=== PATIENT | female | born 1995 | race Caucasian/White ===

== ENCOUNTER 2017-11-05 00:34 | Inpatient (IN) | payer BC ==
[2017-11-05] MEDS: ACETAMINOPHEN 325 MG TAB PO ×3 (02:04→20:31)
[2017-11-05] MEDS: LACTATED RINGER'S 1,000 ML IV ×4 (02:31→21:54)
[2017-11-05 02:53] LABS: ADD MAN DIFF? NO
[2017-11-05 02:56] LABS: WHITE BLOOD COUNT 10.9 10^3/ul (4.8-10.8)
[2017-11-05 02:56] LABS: BASOPHILS % 0.3 % (0.0-2.0); EOSINOPHILS # 0.1 10^3/ul (0.0-0.5); HEMATOCRIT 32.2 % (37.0-47.0); HEMOGLOBIN 10.6 g/dl (12.0-16.0); LYMPHOCYTES # 2.3 10^3/ul (0.8-2.9); LYMPHOCYTES % 20.8 % (15.0-51.0); MEAN CORPUSCULAR HEMOGLOBIN 26.8 pg (29.0-33.0); MEAN CORPUSCULAR HGB CONC 32.9 g/dl (32.0-37.0); MEAN CORPUSCULAR VOLUME 81.3 fl (82.0-101.0); MEAN PLATELET VOLUME 9.3 fl (7.4-10.4); MONOCYTE # 0.9 10^3/ul (0.3-0.9); MONOCYTES % 8.1 % (0.0-11.0); NEUTROPHIL # 7.5 10^3/ul (1.6-7.5); NEUTROPHILS % 69.2 % (39.0-77.0); PLATELET COUNT 429 10^3/UL (140-415); RED BLOOD COUNT 3.96 10^6/ul (4.20-5.40); RED CELL DISTRIBUTION WIDTH 13.9 % (11.5-14.5)
[2017-11-05 03:07] LABS: ADD UMIC YES; UR ASCORBIC ACID 20 mg/dL (NEGATIVE); UR BACTERIA FEW /HPF (NONE SEEN); UR BILIRUBIN (Dip) NEGATIVE (NEGATIVE); UR BLOOD (Dip) NEGATIVE (NEGATIVE); UR BUDDING YEAST FEW /HPF (NONE SEEN); UR CLARITY CLOUDY (CLEAR); UR COLOR YELLOW (YELLOW); UR GLUCOSE (Dip) NEGATIVE (NEGATIVE); UR KETONES (Dip) NEGATIVE (NEGATIVE); UR LEUKOCYTE ESTERASE (Dip) 3+ Leu/ul (NEGATIVE); UR MUCUS FEW /HPF (NONE SEEN); UR NITRITE (Dip) NEGATIVE (NEGATIVE); UR RBC 3 /HPF (0-5); UR SPECIFIC GRAVITY (Dip) 1.017 (1.003-1.030); UR SQUAMOUS EPITHELIAL CELL FEW /HPF (FEW); UR TOTAL PROTEIN (Dip) NEGATIVE (NEGATIVE); UR UROBILINOGEN (Dip) NEGATIVE (NEGATIVE); UR WBC 14 /HPF (0-5)
[2017-11-05 03:17] LABS: ALANINE AMINOTRANSFERASE 84 IU/L (13-69); ALBUMIN 3.5 g/dl (3.3-4.9); ALKALINE PHOSPHATASE 128 IU/L (42-121); ANION GAP 18 (8-16); ASPARTATE AMINO TRANSFERASE 35 IU/L (15-46); BLOOD UREA NITROGEN 7 mg/dl (7-20); CARBON DIOXIDE 21 mmol/L (21-31); CHLORIDE 105 mmol/L (97-110); CREATININE 0.54 mg/dl (0.44-1.00); GLUCOSE 107 mg/dl (70-220); POTASSIUM 3.8 mmol/L (3.5-5.1); SODIUM 140 mmol/L (135-144)
[2017-11-05 03:48] LABS: AMPHETAMINE/METHAMPHETAMINE Negative (NEGATIVE); BARBITURATES Negative (NEGATIVE); BENZODIAZEPINES Negative (NEGATIVE); CANNABINOIDS Negative (NEGATIVE); COCAINE Negative (NEGATIVE); OPIATES Negative (NEGATIVE)
[2017-11-05] MEDS: BETAMET NA PHOS/AC(6 MG/ML) 5ML INJ IM (05:21)
[2017-11-05] MEDS: PRENATAL VITAMIN PO (09:04)
[2017-11-05] MEDS ORDERED: SENNA/DOCUSATE NA (8.6MG/50MG) TAB PO (15:00)
[2017-11-05] MEDS: MAGNESIUM SULFATE 4 GM/100 ML 100 ML IV (15:14)
[2017-11-05] MEDS: MAGNESIUM SULFATE 20 GM/500 ML 500 ML IV (15:48)
[2017-11-05 15:54] LABS: ADD MAN DIFF? NO
[2017-11-05 15:57] LABS: BASOPHILS % 0.2 % (0.0-2.0); HEMATOCRIT 32.7 % (37.0-47.0); HEMOGLOBIN 10.6 g/dl (12.0-16.0); LYMPHOCYTES # 1.3 10^3/ul (0.8-2.9); LYMPHOCYTES % 10.6 % (15.0-51.0); MEAN CORPUSCULAR HEMOGLOBIN 26.7 pg (29.0-33.0); MEAN CORPUSCULAR HGB CONC 32.4 g/dl (32.0-37.0); MEAN CORPUSCULAR VOLUME 82.4 fl (82.0-101.0); MEAN PLATELET VOLUME 9.3 fl (7.4-10.4); MONOCYTE # 0.3 10^3/ul (0.3-0.9); MONOCYTES % 2.2 % (0.0-11.0); NEUTROPHIL # 10.4 10^3/ul (1.6-7.5); NEUTROPHILS % 86.1 % (39.0-77.0); PLATELET COUNT 437 10^3/UL (140-415); RED BLOOD COUNT 3.97 10^6/ul (4.20-5.40); RED CELL DISTRIBUTION WIDTH 14.1 % (11.5-14.5)
[2017-11-05 16:13] LABS: INR 0.95; PROTIME 12.8 Sec (11.9-14.9)
[2017-11-05 16:14] LABS: PARTIAL THROMBOPLASTIN TIME 27.4 Sec (25.0-35.0)
[2017-11-05 16:45] LABS: HEPATITIS B SURFACE ANTIGEN NEGATIVE (NEGATIVE)
[2017-11-05 21:34] LABS: RAPID PLASMA REAGIN NONREACTIVE (NR)
[2017-11-06] MEDS: MAGNESIUM SULFATE 20 GM/500 ML 500 ML IV ×2 (00:59→10:53)
[2017-11-06 01:15] LABS: MAGNESIUM 4.3 mg/dl (1.7-2.5)
[2017-11-06] MEDS: ACETAMINOPHEN 325 MG TAB PO ×2 (04:59→10:51)
[2017-11-06] MEDS: BETAMET NA PHOS/AC(6 MG/ML) 5ML INJ IM (05:11)
[2017-11-06 07:21] LABS: MAGNESIUM 4.4 mg/dl (1.7-2.5)
[2017-11-06] MEDS: PRENATAL VITAMIN PO (10:17)
[2017-11-06] MEDS: LACTATED RINGER'S 1,000 ML IV ×2 (10:18→21:15)
[2017-11-06 12:28] LABS: MAGNESIUM 4.3 mg/dl (1.7-2.5)
[2017-11-06 19:26] LABS: MAGNESIUM 3.6 mg/dl (1.7-2.5)
[2017-11-06] MEDS: FERROUS GLUCONATE (EC) 325 MG TAB PO (21:04)
[2017-11-06] MEDS: NIFEdipine 10 MG CAP PO (21:05)
[2017-11-06] MEDS ORDERED: LACTATED RINGER'S 1,000 ML IV (23:17)
[2017-11-07] MEDS: ACETAMINOPHEN 325 MG TAB PO (02:28)
[2017-11-07] MEDS: NIFEdipine 10 MG CAP PO ×4 (03:02→21:15)
[2017-11-07] MEDS: LACTATED RINGER'S 1,000 ML IV (07:30)
[2017-11-07] MEDS: PRENATAL VITAMIN PO (08:47)
[2017-11-07] MEDS: FERROUS GLUCONATE (EC) 325 MG TAB PO ×2 (08:47→21:53)
[2017-11-08] MEDS: NIFEdipine 10 MG CAP PO ×4 (03:03→21:46)
[2017-11-08] MEDS: FERROUS GLUCONATE (EC) 325 MG TAB PO ×2 (09:42→21:40)
[2017-11-08] MEDS: PRENATAL VITAMIN PO (09:42)
[2017-11-08] MEDS: metroNIDAZOLE 500 MG TAB PO (21:40)
[2017-11-08] MEDS: CEPHALEXIN 500 MG CAP PO (21:40)
[2017-11-08] MEDS ORDERED: LACTATED RINGER'S 1,000 ML IV (23:17)
[2017-11-09] MEDS: NIFEdipine 10 MG CAP PO ×2 (03:07→09:35)
[2017-11-09] MEDS: CEPHALEXIN 500 MG CAP PO ×2 (05:52→13:46)
[2017-11-09] MEDS: metroNIDAZOLE 500 MG TAB PO (09:35)
[2017-11-09] MEDS: FERROUS GLUCONATE (EC) 325 MG TAB PO (09:35)
[2017-11-09] MEDS: PRENATAL VITAMIN PO (09:36)
[2017-11-09] MEDS ORDERED: FLU VACC QS 2017 (6-35MOS)/PF 30 MCG/0.25 ML SYRINGE IM* (10:30)
[2017-11-09] MEDS: AZITHROMYCIN 250 MG TAB PO (12:42)
[2017-11-09] MEDS: DIPHTH/TET/ACEL PERTUSS (ADULT) 0.5 ML VIAL IM* (12:46)
[2017-11-09] MEDS: INFLUENZA VIRUS VACCINE 0.5 ML (DISPENSING) IM* (12:51)
[2017-11-10] MEDS ORDERED: INFLUENZA VIRUS VACCINE 0.5 ML SYG IM* (14:30)
== END 2017-11-09 19:07 | disposition home or self-care (01) | DRG 780 ==
LOC: OBT 00:34 → PP1 11-07 02:07 → L-D 00:34 → OBT 04:53 → L-D 05:01
DX: O47.02 False labor before 37 completed weeks of gestation, second trimester (principal); O26.872 Cervical shortening, second trimester; O98.812 Other maternal infectious and parasitic diseases complicating pregnancy, second trimester; K52.9 Noninfective gastroenteritis and colitis, unspecified; Z3A.27 27 weeks gestation of pregnancy
CPT/HCPCS: 36415; 76815; 76817; 76818; 80053; 80307; 81001; 82731; 83735; 85025; 85384; 85610; 85730; 86592; 86850; 86900; 86901; 87070; 87081; 87086; 87340; 87591; 90686; 90715; 96360; 96361

== ENCOUNTER 2018-01-22 15:01 | Inpatient (IN) | payer BC ==
[2018-01-22] MEDS ORDERED: MISOPROSTOL 200 MCG TAB PR (18:30)
[2018-01-22] MEDS ORDERED: OXYTOCIN 30 UNITS/LR 500 ML IV (18:30)
[2018-01-22] MEDS ORDERED: BUTORPHANOL 2 MG INJ IV (18:30)
[2018-01-22] MEDS ORDERED: LIDOCAINE 1% (MPF) 30 ML INJ INJ (18:30)
[2018-01-22] MEDS ORDERED: CARBOPROST 250 MCG INJ IM (18:30)
[2018-01-22] MEDS ORDERED: METHYLERGONOVINE 0.2 MG INJ IM (18:30)
[2018-01-22] MEDS ORDERED: HYDROCODONE/APAP (5/325) TAB PO (18:30)
[2018-01-22] MEDS: LACTATED RINGER'S 1,000 ML IV (18:34)
[2018-01-22 18:37] LABS: ADD MAN DIFF? NO
[2018-01-22 18:40] LABS: BASOPHILS % 0.2 % (0.0-2.0); EOSINOPHILS # 0.1 10^3/ul (0.0-0.5); EOSINOPHILS % 0.7 % (0.0-7.0); HEMATOCRIT 35.5 % (37.0-47.0); HEMOGLOBIN 11.7 g/dl (12.0-16.0); LYMPHOCYTES # 1.5 10^3/ul (0.8-2.9); LYMPHOCYTES % 11.9 % (15.0-51.0); MEAN CORPUSCULAR HEMOGLOBIN 27.2 pg (29.0-33.0); MEAN CORPUSCULAR VOLUME 82.6 fl (82.0-101.0); MEAN PLATELET VOLUME 9.5 fl (7.4-10.4); MONOCYTE # 0.7 10^3/ul (0.3-0.9); MONOCYTES % 5.7 % (0.0-11.0); NEUTROPHIL # 9.9 10^3/ul (1.6-7.5); PLATELET COUNT 378 10^3/UL (140-415); RED CELL DISTRIBUTION WIDTH 16.4 % (11.5-14.5)
[2018-01-22 18:40] LABS: WHITE BLOOD COUNT 12.2 10^3/ul (4.8-10.8)
[2018-01-22 19:20] LABS: INR 0.92; PROTIME 12.4 Sec (11.9-14.9)
[2018-01-22 19:21] LABS: PARTIAL THROMBOPLASTIN TIME 29.2 Sec (25.0-35.0)
[2018-01-22] MEDS: OXYTOCIN 30 UNITS/LR 500 ML IV (21:02)
[2018-01-23 00:21] LABS: HEPATITIS B SURFACE ANTIGEN NEGATIVE (NEGATIVE)
[2018-01-23] MEDS: LACTATED RINGER'S 1,000 ML IV ×5 (01:52→19:54)
[2018-01-23] MEDS ORDERED: FENTAnyl 2MCG/ML-ROPIV 0.2% 100 ML (13:29)
[2018-01-23] MEDS ORDERED: NALOXONE (0.4 MG/ML) INJ IV ×2 (14:00→20:30)
[2018-01-23] MEDS ORDERED: FENTAnyl 2MCG/ML-ROPIV 0.2% 100 ML BAG EPI (14:00)
[2018-01-23] MEDS ORDERED: OXYTOCIN 30 UNITS/LR 500 ML IV ×2 (18:00→20:00)
[2018-01-23] MEDS: CEFAZOLIN 2 GM/50 ML (PMX) 50 ML IV ×2 (18:35→21:01)
[2018-01-23] MEDS ORDERED: FENTAnyl 50 MCG/ML VIAL (18:59)
[2018-01-23] MEDS ORDERED: NA BICARBONATE 8.4% 50 ML SYG (18:59)
[2018-01-23] MEDS ORDERED: LIDOCAINE 1.5%/EPI MPF (SDV) 30 ML VIAL (18:59)
[2018-01-23] MEDS ORDERED: CEFAZOLIN 1 GM INJ (19:03)
[2018-01-23] MEDS ORDERED: PHENYLephrine (100 MCG/ML) 5ML SYG ×2 (19:04→19:23)
[2018-01-23] MEDS ORDERED: DEXAMETHASONE 4 MG/ML 1 ML INJ (19:08)
[2018-01-23] MEDS ORDERED: ONDANSETRON 4 MG INJ (19:08)
[2018-01-23] MEDS ORDERED: OXYTOCIN 10 UNIT INJ (19:11)
[2018-01-23] MEDS ORDERED: EPHEDrine SULFATE 50 MG/5 ML SYG (19:18)
[2018-01-23] MEDS ORDERED: NORepinephrine 4 MG INJ (19:23)
[2018-01-23] MEDS: OXYTOCIN 30 UNITS/LR 500 ML IV ×2 (19:53→21:45)
[2018-01-23] MEDS ORDERED: LANOLIN 7 GM TUBE TOP (20:00)
[2018-01-23] MEDS ORDERED: METHYLERGONOVINE 0.2 MG INJ IM (20:00)
[2018-01-23] MEDS ORDERED: MISOPROSTOL 200 MCG TAB PR (20:00)
[2018-01-23] MEDS ORDERED: CARBOPROST 250 MCG INJ IM (20:00)
[2018-01-23] MEDS: SENNA/DOCUSATE NA (8.6MG/50MG) TAB PO (21:00)
[2018-01-23] MEDS: HYDROmorphONE 0.2 MG/ML PCA IV (21:44)
[2018-01-23 22:50] LABS: RAPID PLASMA REAGIN NONREACTIVE (NR)
[2018-01-23] MEDS: IBUPROFEN 600 MG TAB PO (23:25)
[2018-01-24] MEDS: CEFAZOLIN 2 GM/50 ML (PMX) 50 ML IV ×2 (04:29→11:35)
[2018-01-24] MEDS: IBUPROFEN 600 MG TAB PO ×4 (05:25→23:35)
[2018-01-24 07:39] LABS: ADD MAN DIFF? NO
[2018-01-24 07:42] LABS: WHITE BLOOD COUNT 11.7 10^3/ul (4.8-10.8)
[2018-01-24 07:42] LABS: BASOPHILS % 0.1 % (0.0-2.0); EOSINOPHILS % 0.1 % (0.0-7.0); HEMATOCRIT 29.5 % (37.0-47.0); HEMOGLOBIN 9.8 g/dl (12.0-16.0); LYMPHOCYTES # 1.7 10^3/ul (0.8-2.9); LYMPHOCYTES % 14.1 % (15.0-51.0); MEAN CORPUSCULAR HEMOGLOBIN 27.5 pg (29.0-33.0); MEAN CORPUSCULAR HGB CONC 33.2 g/dl (32.0-37.0); MEAN CORPUSCULAR VOLUME 82.6 fl (82.0-101.0); MEAN PLATELET VOLUME 9.7 fl (7.4-10.4); MONOCYTE # 0.7 10^3/ul (0.3-0.9); NEUTROPHIL # 9.3 10^3/ul (1.6-7.5); NEUTROPHILS % 79.4 % (39.0-77.0); PLATELET COUNT 300 10^3/UL (140-415); RED BLOOD COUNT 3.57 10^6/ul (4.20-5.40); RED CELL DISTRIBUTION WIDTH 16.4 % (11.5-14.5)
[2018-01-24] MEDS: SENNA/DOCUSATE NA (8.6MG/50MG) TAB PO ×2 (09:55→20:41)
[2018-01-24] MEDS: OXYCODONE/ACETAMINOPHEN (5/325) TAB PO ×2 (19:47→23:35)
[2018-01-25] MEDS: OXYCODONE/ACETAMINOPHEN (5/325) TAB PO ×5 (03:09→21:28)
[2018-01-25] MEDS: IBUPROFEN 600 MG TAB PO ×4 (05:52→23:55)
[2018-01-25] MEDS: SENNA/DOCUSATE NA (8.6MG/50MG) TAB PO ×2 (11:08→21:27)
[2018-01-25] MEDS: FERROUS SULFATE (EC) 325 MG TAB PO ×2 (11:08→21:28)
[2018-01-26] MEDS: IBUPROFEN 600 MG TAB PO ×2 (05:20→11:46)
[2018-01-26] MEDS: OXYCODONE/ACETAMINOPHEN (5/325) TAB PO (05:20)
[2018-01-26] MEDS: SENNA/DOCUSATE NA (8.6MG/50MG) TAB PO (09:28)
[2018-01-26] MEDS: FERROUS SULFATE (EC) 325 MG TAB PO (09:28)
== END 2018-01-26 12:25 | disposition home or self-care (01) | DRG 766 ==
LOC: OBT 15:01 → L-D 15:02 → OBT 18:07 → L-D 18:00 → PP1 01-23 22:35
PROVIDERS: Obstetrics & Gynecology
PROC: 10D00Z1 Extraction of Products of Conception, Low, Open Approach (ICD-10-PCS; principal; 2018-01-23 18:30)
DX: O62.1 Secondary uterine inertia (principal); Z3A.38 38 weeks gestation of pregnancy; Z37.0 Single live birth
CPT/HCPCS: 62319; 76815; 76818; 85025; 85610; 85730; 86592; 86885; 86900; 86901; 87340; 94760; 99464